=== PATIENT | male | born 1945 | race Caucasian/White ===

== ENCOUNTER 2020-09-22 10:06 | Emergency (ER) | payer BC, MEDICARE ==
[~2020-09-22] VITALS: Ht 170.2 cm; Wt 77.3 kg
[2020-09-22] MEDS ORDERED: METO1TAB32 (10:30)
[2020-09-22] MEDS ORDERED: ROSU20TA5 (10:30)
[2020-09-22] MEDS ORDERED: ASPI81CH33 PO (10:30)
--- NOTE | 2020-09-22 10:41 | REP ---
INDICATION: pain/throat appers normal. COMPARISON: None. TECHNIQUE: Portable AP and lateral soft tissue neck radiographs FINDINGS: The airways patent, normal in appearance and position. The surrounding soft tissues are unremarkable. No subcutaneous emphysema or foreign body. The visualized osseous structures demonstrate age-related degenerative changes primarily involving C4-5 and C5-6. IMPRESSION: Unremarkable examination <Electronically signed by Gal Whiteside > 09/22/20 1037
[2020-09-22 10:58] VITALS: BP 122/70
== END 2020-09-22 10:59 | disposition home or self-care (01) ==
LOC: M ED 10:06
DX: U07.1 COVID-19 (principal); I25.10 Atherosclerotic heart disease of native coronary artery without angina pectoris; I10 Essential (primary) hypertension; E07.9 Disorder of thyroid, unspecified

== ENCOUNTER → 2022-10-14 | Outpatient (REF) | payer MEDICARE ==
[~2022-10-14] MED LIST: ASPI81CH33 PO; CEPH500C; EZET10TA21; LIDO5DIS41 TOP; METO1TAB32; ROSU20TA5; ROSU40TA4
[2022-10-14 15:57] LABS: APPEARANCE, URINE MANUAL CLEAR (CLEAR); COLOR, URINE MANUAL YELLOW (YELLOW)
[2022-10-14 16:03] LABS: BILIRUBIN, URINE MANUAL NEGATIVE (NEGATIVE); BLOOD URINE MANUAL NEGATIVE (NEGATIVE); GLUCOSE, URINE (UA) MANUAL NEGATIVE (NEGATIVE); KETONE, URINE MANUAL NEGATIVE (NEGATIVE); LEUKOCYTE ESTERASE, URINE MAN NEGATIVE (NEGATIVE); NITRITE, URINE MANUAL NEGATIVE (NEGATIVE); PROTEIN, URINE MANUAL NEGATIVE (NEGATIVE); UROBILINOGEN, URINE MANUAL NORMAL (NORMAL)
== END ==
LOC: M LAB REF 12:35
PROVIDERS: ATTEND Physician Assistant
DX: N39.0 Urinary tract infection, site not specified (principal)

== ENCOUNTER 2022-10-16 09:59 | Emergency (ER) | payer MEDICARE ==
[~2022-10-16] VITALS: Ht 170.2 cm; Wt 78.5 kg
[~2022-10-16 09:59] MED LIST changes: -CEPH500C; -EZET10TA21; -LIDO5DIS41 TOP; -ROSU40TA4
[2022-10-16] MEDS ORDERED: CEPH500C (10:20)
[2022-10-16] MEDS ORDERED: EZET10TA21 (10:20)
[2022-10-16] MEDS ORDERED: ROSU40TA4 (10:20)
[2022-10-16] MEDS ORDERED: LIDOCAINE 5% (LIDODERM) PATCH TD ONE (16:15)
[2022-10-16] MEDS ORDERED: ACETAMINOPHEN 325 MG TAB PO ONE (16:15)
[2022-10-16] MEDS ORDERED: LIDO5DIS41 TOP (18:56)
[2022-10-16 19:11] VITALS: BP 126/62
== END 2022-10-16 19:17 | disposition home or self-care (01) ==
LOC: M ED 09:59
DX: M54.50 Low back pain, unspecified (principal); M16.12 Unilateral primary osteoarthritis, left hip; E78.5 Hyperlipidemia, unspecified; I10 Essential (primary) hypertension; Z86.79 Personal history of other diseases of the circulatory system; Z95.5 Presence of coronary angioplasty implant and graft; Z79.82 Long term (current) use of aspirin; Z79.84 Long term (current) use of oral hypoglycemic drugs; Z79.02 Long term (current) use of antithrombotics/antiplatelets; Z79.899 Other long term (current) drug therapy

== ENCOUNTER → 2022-10-22 | Outpatient (CLI) | payer MEDICARE ==
[~2022-10-22] MED LIST changes: +CEPH500C; +EZET10TA21; +LIDO5DIS41 TOP; +ROSU40TA4
[2022-10-22 07:23] LABS: HEMATOCRIT 41.1 % (42.0-52.0); HEMOGLOBIN 12.9 g/dl (13.5-17.5); MEAN CORPUSCULAR HEMOGLOBIN 20.4 pg (27.0-33.0); MEAN CORPUSCULAR HGB CONC 31.4 g/dl (32.0-36.5); MEAN CORPUSCULAR VOLUME 65.1 fl (80.0-96.0); PLATELET COUNT, AUTOMATED 248 10^3/uL (150-450); RED BLOOD COUNT 6.31 10^6/uL (4.30-6.10); WHITE BLOOD COUNT 7.3 10^3/uL (4.0-10.0)
[2022-10-22 07:39] LABS: HEMOGLOBIN A1c 4.9 % (4.0-6.0)
[2022-10-22 07:57] LABS: ALBUMIN 3.8 G/DL (3.2-5.2); ALKALINE PHOSPHATASE 73 U/L (46-116); ALT/SGPT 52 U/L (7.0-40); AST/SGOT 36 U/L (<34); BILIRUBIN,TOTAL 0.6 MG/DL (0.3-1.2); BLOOD UREA NITROGEN 19 MG/DL (9-23); CALCIUM LEVEL 8.9 MG/DL (8.3-10.6); CARBON DIOXIDE LEVEL 28 MMOL/L (20-31); CHLORIDE LEVEL 106 MMOL/L (98-107); CHOLESTEROL LEVEL 95 MG/DL (<200); CHOLESTEROL RISK RATIO 2.45 (<5); CREATININE FOR GFR 0.77 MG/DL (0.70-1.30); GLOMERULAR FILTRATION RATE > 60.0 (>42); GLUCOSE, FASTING 98 MG/DL (74-106); HDL CHOLESTEROL 38.7 MG/DL (>40); LDL CHOLESTEROL 44.1 MG/DL (<100); NON-HDL-C 56 MG/DL; POTASSIUM SERUM 4.8 MMOL/L (3.5-5.1); PROSTATIC SPECIFIC AG MONITOR 2.58 NG/ML (< 4.00); SODIUM LEVEL 140 MMOL/L (136-145); TOTAL PROTEIN 6.7 G/DL (5.7-8.2); TRIGLYCERIDES LEVEL 61 MG/DL (<150)
[2022-10-22 07:58] LABS: TOTAL 25(OH) VITAMIN D 36.5 NG/ML (20.0-100.0)
[2022-10-22 07:59] LABS: TESTOSTERONE 412 NG/DL (241-827); THYROID STIMULATING HORMONE 2.099 uIU/ML (0.55-4.78)
== END ==
LOC: M RAD 06:25
PROVIDERS: ATTEND Family Medicine
DX: D64.9 Anemia, unspecified (principal); R53.83 Other fatigue; E03.9 Hypothyroidism, unspecified; M47.816 Spondylosis without myelopathy or radiculopathy, lumbar region; R93.5 Abnormal findings on diagnostic imaging of other abdominal regions, including retroperitoneum; R94.31 Abnormal electrocardiogram [ECG] [EKG]

== ENCOUNTER → 2022-11-29 | Outpatient (CLI) | payer MEDICARE ==
[~2022-11-29] MED LIST changes: +E-Z-GAS II EFFERVESCENT PACKET (SODIUM BICARB./CITRIC ACID/SIMETHICONE) As Ordered ONE; +E-Z-HD 98% w/w 340GM SUSP BTL As Ordered ONE; +E-Z-PAQUE 96% w/w SUSP 176GM BTL As Ordered ONE
== END ==
LOC: M RAD 07:56
PROVIDERS: ATTEND Family Medicine
DX: D64.9 Anemia, unspecified (principal); K27.9 Peptic ulcer, site unspecified, unspecified as acute or chronic, without hemorrhage or perforation; K21.9 Gastro-esophageal reflux disease without esophagitis

== ENCOUNTER → 2023-01-07 | Outpatient (CLI) | payer MEDICARE ==
[~2023-01-07] MED LIST changes: -E-Z-GAS II EFFERVESCENT PACKET (SODIUM BICARB./CITRIC ACID/SIMETHICONE) As Ordered ONE; -E-Z-HD 98% w/w 340GM SUSP BTL As Ordered ONE; -E-Z-PAQUE 96% w/w SUSP 176GM BTL As Ordered ONE
== END ==
LOC: M LAB 13:08
PROVIDERS: ATTEND Family Medicine
DX: D56.9 Thalassemia, unspecified (principal)